=== PATIENT | female | born 1995 | race Caucasian/White ===

== ENCOUNTER 2017-03-13 08:55 | Emergency (ER) | payer OTHER ==
[2017-03-13 10:14] LABS: Basophils % (Auto) 0.4 % (0.0-1.8); Eosinophils % (Auto) 9.2 % (0.0-4.3); Hematocrit 36.3 % (30.3-42.9); Hemoglobin 12.5 gm/dl (10.1-14.3); Mean Corpuscular HGB Conc 35 % (30-34); Mean Corpuscular Hemoglobin 30 pg (28-32); Mean Corpuscular Volume 86 fl (79-97); Platelet Count 121 K/mm3 (140-440); Red Blood Count 4.24 M/mm3 (3.65-5.03); Red Cell Distribution Width 14.3 % (13.2-15.2); White Blood Count 8.3 K/mm3 (4.5-11.0)
[2017-03-13 10:33] LABS: Alanine Aminotransferase 6 units/L (7-56); Albumin 3.6 g/dL (3.9-5); Albumin/Globulin Ratio 1.1 %; Alkaline Phosphatase 70 units/L (35-129); Anion Gap 16 mmol/L; BUN/Creatinine Ratio 20; Blood Urea Nitrogen 6 mg/dL (7-17); Calcium 8.7 mg/dL (8.4-10.2); Carbon Dioxide 26 mmol/L (22-30); Chloride 99.3 mmol/L (98-107); Glucose 86 mg/dL (65-100); Potassium 3.8 mmol/L (3.6-5.0); Sodium 137 mmol/L (137-145)
[2017-03-13 10:34] LABS: Bilirubin,Direct < 0.2 mg/dL (0-0.2); Bilirubin,Indirect 0.1 mg/dL
[2017-03-13] MEDS ORDERED: TYLENOL PO ONE (10:40)
--- NOTE | 2017-03-13 11:05 | Emergency Department Report ---
HPI - General Chief Complaint: Abdominal Pain Time Seen by Provider: 03/13/17 09:39 - HPI HPI: This is a 21-year-old female presents to the emergency department with a complaint of a 3-4 day history of some upper abdominal discomfort that is associated with some nausea without vomiting. She denies any vaginal bleeding, discharge, dysuria. She says that she had a fever on Monday, 3 days ago and says that they checked the temperature by she is unsure what the result was. She has also been having a few days of some upper respiratory type symptoms including a dry cough. She tried some Tylenol for her discomfort without much relief. The patient says that she is as she found out incidentally back in November and says that she was told she was 6 weeks at that time. She has a past surgical history of a cholecystectomy. No recent travel or sick contacts at home. The patient later told me that she has in fact had some mild vaginal spotting over the past few days when she uses the bathroom and wipes herself. ED Past Medical Hx - Past Medical History Previous Medical History?: No - Surgical History Past Surgical History?: Yes Hx Cholecystectomy: Yes - Social History Smoking Status: Never Smoker Substance Use Type: None - Medications Home Medications: Home Medications Medication Instructions Recorded Confirmed Last Taken Type Vit-Fe Fumar-FA [ 1 tab PO QDAY #30 tablet 03/13/17 Unknown Rx Vitamin] ED Review of Systems ROS: Stated complaint: CHEST AND STOMACH PAIN, PREG Other details as noted in HPI Comment: All other systems reviewed and negative Constitutional: denies: chills, fever Eyes: denies: eye pain, eye discharge, vision change ENT: denies: ear pain, throat pain Respiratory: cough. denies: shortness of breath Cardiovascular: denies: palpitations, edema Gastrointestinal: abdominal pain, nausea. denies: vomiting Genitourinary: denies: urgency, dysuria, discharge Musculoskeletal: denies: back pain, arthralgia Skin: denies: rash, lesions Neurological: denies: headache, weakness, paresthesias Physical Exam - Physical Exam Vital Signs: Vital Signs 03/13/17 09:02 Temperature 98.5 F Pulse Rate 85 Respiratory 16 Rate Blood Pressure 118/64 O2 Sat by Pulse 98 Oximetry Physical Exam: GENERAL: The patient is well-developed well-nourished. HENT: Normocephalic. Atraumatic. Patient has moist mucous membranes. EYES: Extraocular motions are intact. Pupils equal reactive to light bilaterally. NECK: Supple. Trachea is midline. CHEST/LUNGS: Clear to auscultation. There is no respiratory distress noted. HEART/CARDIOVASCULAR: Regular. There is no tachycardia. There is no gallop rub or murmur. ABDOMEN: Abdomen is soft. There is mild tenderness palpation to the middle to upper abdomen but no guarding or rebound tenderness. Gravid uterus appears palpable just below the umbilicus. Patient has normal bowel sounds. SKIN: There is no rash. There is no edema. There is no diaphoresis. NEURO: The patient is awake, alert, and oriented. The patient is cooperative. The patient has no focal neurologic deficits. The patient has normal speech MUSCULOSKELETAL: There is no tenderness or deformity. There is no limitation range of motion. There is no evidence of acute injury. ED Course Vital Signs 03/13/17 09:02 Temperature 98.5 F Pulse Rate 85 Respiratory 16 Rate Blood Pressure 118/64 O2 Sat by Pulse 98 Oximetry ED Medical Decision Making - Lab Data Result diagrams: 03/13/17 09:59 03/13/17 09:59 - Radiology Data Radiology results: report reviewed OB ULTRASOUND GREATER THAN 14 WEEKS INDICATION: Abdominal pain. COMPARISON: None similar. TECHNIQUE: Transabdominal grayscale ultrasound with Doppler interrogation. Gestation: Felder Position: Cephalic Amniotic Fluid: WNL (less than 24 weeks, subjective) Placenta: Anterior Placental Grade: 0 Heart Rate: 143 BPM Cervical length: 5.2 cm (Normal > 3 cm) It is too early for a anatomical survey BPD: 3.95 cm = 18 w 0 d HC: 14.5 cm = 17 w 5 d AC: 11.8 cm = 17 w 4 d FL: 2.6 cm = 17 w 5 d HC/AC Ratio: 1.22 Cephalic Index: 81.5 Estimated Weight: 203 grams LMP: 11/12/2016 Clinical age = 17 w 2 d EDC: 08/19/2017 US Gest. Age = 17 w 5 d EDC: 08/16/2017 CONCLUSION: Single, viable intrauterine gestation with ultrasound estimated age of 17 weeks and 5 days and EDC of 08/16/2017, currently in vertex lie with details, as above. Thank you for the opportunity to participate in this patient's care. Transcribed By: ALIDA Dictated By: EDISON CALLES MD Electronically Authenticated By: EDISON CALLES MD Signed Date/Time: 03/13/17 1229 ULTRASOUND ABDOMEN COMPLETE INDICATION: Abdominal pain. COMPARISON: None similar at this institution. FINDINGS: Abdominal sonography demonstrates diffuse hepatic echogenic coarsening with grossly preserved contours. No definite focal suspicious lesions or biliary dilatation, to the extent assessed. Right hepatic lobe approximately 21 cm in midclavicular length. Gallbladder surgically absent. Common bile duct is 3 mm. Homogenous spleen, approximately 9.4 cm in length. No ascites. Imaged pancreas grossly within normal limits. Unremarkable IVC. Nonaneurysmal abdominal aorta. No hydronephrosis with right kidney approximately 11.3 x 4.6 x 5.7 cm with cortical thickness of 1.4 cm while the left kidney is 10.5 x 5.7 x 5.2 cm with cortical thickness of 1.6 cm. CONCLUSION: Fatty enlarged liver and cholecystectomy without acute abdominal sonographic abnormality, as described. Thank you for the opportunity to participate in this patient's care. Transcribed By: RS Dictated By: EDISON CALLES MD Electronically Authenticated By: EDISON CALLES MD Signed Date/Time: 03/13/17 1215 - Medical Decision Making 21-year-old female presents with a few days of some upper abdominal discomfort and some nausea without vomiting. She also knows that she is but is unsure how far along she is. Her labs appeared mostly unremarkable. There is no signs of any leukocytosis, likely abnormalities and she has normal belly labs including lipase, bilirubin and LFTs. Urinalysis confirms but does not show any urinary tract infection. Both a obstetric and regular abdominal ultrasound were done that showed a intrauterine at about 17 weeks but otherwise no acute process or infectious etiology in this female who has a previous cholecystectomy. Vital signs were stable throughout ED course including being afebrile. She will be started on vitamins. She will be given multiple referrals for MACHINE OPERATOR TRANSPLANTER for care. She has been encouraged to return to the emergency department with any worsening of her symptoms, increased bleeding, or any acute distress. Discharge instructions were provided while she was in the emergency department and all questions have been answered. - Differential Diagnosis , threatened miscarriage, fibroids, appendicitis Critical Care Time: No Critical care attestation.: If time is entered above; I have spent that time in minutes in the direct care of this critically ill patient, excluding procedure time. ED Disposition Clinical Impression: Threatened miscarriage Abdominal pain Qualifiers: Abdominal location: periumbilical Qualified Code(s): R10.33 - Periumbilical pain Qualifiers: Weeks of gestation: 17 weeks Qualified Code(s): Z3A.17 - 17 weeks gestation of Disposition: - TO HOME OR SELFCARE Is pt being admited?: No Condition: Stable Instructions: Threatened Miscarriage (ED), (ED), Abdominal Pain (ED) Additional Instructions: Please follow up with an MACHINE OPERATOR TRANSPLANTER in the next few days. Return to the emergency Department with any worsening of your symptoms or any acute distress. You can take Tylenol 500-650 mg every 6 hours as needed for discomfort. I have started you on vitamins. Otherwise do not take any medications that are not prescribed by a physician as they may not be safe for . Prescriptions: Vit-Fe Fumar-FA [ Vitamin] 1 tab PO QDAY #30 tablet Referrals: [facility] [Provider Group] - 3-5 Days [facility] [Provider Group] - 3-5 Days [facility] [Provider Group] - 3-5 Days [facility] [Primary Care Provider] - 3-5 Days Time of Disposition: 13:06
[2017-03-13 11:14] LABS: Bacteria,Urine 1+ /HPF (Negative); Mucus,Urine 2+ /HPF
[2017-03-13 11:19] LABS: Bilirubin,Urine NEG (Negative); Blood,Urine SM (Negative); Ketones,Urine NEG (Negative); Leukocyte Esterase,Urine MOD (Negative); Nitrite,Urine NEG (Negative); Protein,Urine <15 mg/dL mg/dL (Negative)
--- NOTE | 2017-03-13 12:21 | Ultrasound Report ---
ULTRASOUND ABDOMEN COMPLETE INDICATION: Abdominal pain. COMPARISON: None similar at this institution. FINDINGS: Abdominal sonography demonstrates diffuse hepatic echogenic coarsening with grossly preserved contours. No definite focal suspicious lesions or biliary dilatation, to the extent assessed. Right hepatic lobe approximately 21 cm in midclavicular length. Gallbladder surgically absent. Common bile duct is 3 mm. Homogenous spleen, approximately 9.4 cm in length. No ascites. Imaged pancreas grossly within normal limits. Unremarkable IVC. Nonaneurysmal abdominal aorta. No hydronephrosis with right kidney approximately 11.3 x 4.6 x 5.7 cm with cortical thickness of 1.4 cm while the left kidney is 10.5 x 5.7 x 5.2 cm with cortical thickness of 1.6 cm. CONCLUSION: Fatty enlarged liver and cholecystectomy without acute abdominal sonographic abnormality, as described. Thank you for the opportunity to participate in this patient's care.
--- NOTE | 2017-03-13 12:34 | Ultrasound Report ---
OB ULTRASOUND GREATER THAN 14 WEEKS INDICATION: Abdominal pain. COMPARISON: None similar. TECHNIQUE: Transabdominal grayscale ultrasound with Doppler interrogation. Gestation: Felder Position: Cephalic Amniotic Fluid: WNL (less than 24 weeks, subjective) Placenta: Anterior Placental Grade: 0 Heart Rate: 143 BPM Cervical length: 5.2 cm (Normal > 3 cm) It is too early for a anatomical survey BPD: 3.95 cm = 18 w 0 d HC: 14.5 cm = 17 w 5 d AC: 11.8 cm = 17 w 4 d FL: 2.6 cm = 17 w 5 d HC/AC Ratio: 1.22 Cephalic Index: 81.5 Estimated Weight: 203 grams LMP: 11/12/2016 Clinical age = 17 w 2 d EDC: 08/19/2017 US Gest. Age = 17 w 5 d EDC: 08/16/2017 CONCLUSION: Single, viable intrauterine gestation with ultrasound estimated age of 17 weeks and 5 days and EDC of 08/16/2017, currently in vertex lie with details, as above. Thank you for the opportunity to participate in this patient's care.
[2017-03-13 12:42] VITALS: BP 116/59
== END 2017-03-13 13:29 | disposition home or self-care (01) ==
LOC: ED 08:55
DX: O20.0 Threatened abortion (principal); Z3A.17 17 weeks gestation of pregnancy
CPT/HCPCS: 36415; 76700; 76801; 80048; 80074; 81001; 84703; 85025; 99284

== ENCOUNTER 2017-03-29 15:42 | Emergency (ER) | payer OTHER ==
[2017-03-29 15:54] VITALS: BP 130/68
[2017-03-29 16:28] LABS: Hematocrit 38.7 % (30.3-42.9); Mean Corpuscular Hemoglobin 29 pg (28-32); Mean Corpuscular Volume 87 fl (79-97); Red Blood Count 4.45 M/mm3 (3.65-5.03); White Blood Count 13.6 K/mm3 (4.5-11.0)
[2017-03-29 16:29] LABS: Basophils % (Auto) 0.3 % (0.0-1.8); Eosinophils % (Auto) 2.5 % (0.0-4.3); Mean Corpuscular HGB Conc 34 % (30-34); Platelet Count 120 K/mm3 (140-440); Red Cell Distribution Width 14.7 % (13.2-15.2)
[2017-03-29 16:35] LABS: Anion Gap 21 mmol/L; BUN/Creatinine Ratio 20; Blood Urea Nitrogen 6 mg/dL (7-17); Calcium 8.6 mg/dL (8.4-10.2); Carbon Dioxide 20 mmol/L (22-30); Chloride 99.1 mmol/L (98-107); Glucose 87 mg/dL (65-100); Potassium 3.5 mmol/L (3.6-5.0); Sodium 137 mmol/L (137-145)
[2017-03-29 19:36] LABS: Bacteria,Urine 1+ /HPF (Negative); Bilirubin,Urine NEG (Negative); Blood,Urine SM (Negative); Ketones,Urine 20 mg/dL (Negative); Leukocyte Esterase,Urine LG (Negative); Mucus,Urine 2+ /HPF; Nitrite,Urine NEG (Negative); Urobilinogen,Urine < 2.0 mg/dL (<2.0)
== END 2017-03-30 00:03 | disposition left against medical advice (07) ==
LOC: ED 15:42
DX: Z53.21 Procedure and treatment not carried out due to patient leaving prior to being seen by health care provider (principal)
CPT/HCPCS: 36415; 80048; 81001; 84702; 85025

== ENCOUNTER 2017-06-19 23:50 | Outpatient (CLI) | payer OTHER ==
[2017-06-20] MEDS ORDERED: LACTATED RINGERS 1,000 ML IV ONE ×2 (00:46→01:50)
[2017-06-20 01:56] LABS: Basophils % (Auto) 0.7 % (0.0-1.8); Eosinophils # (Auto) 0.2 K/mm3 (0.0-0.4); Eosinophils % (Auto) 3.6 % (0.0-4.3); Hematocrit 27.2 % (30.3-42.9); Hemoglobin 9.3 gm/dl (10.1-14.3); Lymphocytes # (Auto) 1.7 K/mm3 (1.2-5.4); Lymphocytes % (Auto) 29.5 % (13.4-35.0); Mean Corpuscular HGB Conc 34 % (30-34); Mean Corpuscular Hemoglobin 28 pg (28-32); Mean Corpuscular Volume 84 fl (79-97); Monocytes # (Auto) 0.4 K/mm3 (0.0-0.8); Monocytes % (Auto) 6.8 % (0.0-7.3); Red Blood Count 3.26 M/mm3 (3.65-5.03); Red Cell Distribution Width 13.6 % (13.2-15.2)
--- NOTE | 2017-06-20 01:57 | Ultrasound Report ---
FINAL REPORT EXAM: US OB > = 14 WEEKS FETUS HISTORY: No PNC. Complete US TECHNIQUE: Transabdominal imaging was obtained of the pelvis. FINDINGS: There is a single viable intrauterine with cephalic presentation corresponding to a gestational age of 31 weeks 3 days based on sonographic criteria. The heart is 154 BPM. The placenta is fundal in position and is grade 1. The JOSE is 5.5 cm which is decreased. There are no gross anomalies involving the stomach, kidneys, bladder, diaphragm, four-chamber heart, heart, and three-vessel umbilical cord. The neuro anatomy, spine and cord insertion cannot be evaluated. The estimated weight is 1813 grams. The cervix is closed measuring 2.5 cm in length. IMPRESSION: Single viable IUP, 31 weeks 3 days. Diminished JOSE of 5.5 cm.
[2017-06-20 02:02] LABS: Platelet Count 135 K/mm3 (140-440)
[2017-06-20 02:04] LABS: Hepatitis C Virus Antibody Non-Reactive (NonReactive)
[2017-06-20 02:49] LABS: Rubella IgG Antibody Immune (Immune)
[2017-06-20] MEDS ORDERED: PROCARDIA*For Tocolysis only PO ONE (02:51)
[2017-06-20 03:10] VITALS: BP 108/69
[2017-06-20 04:43] LABS: Bilirubin,Urine NEG (Negative); Blood,Urine NEG (Negative); Color,Urine Yellow (Yellow); Mucus,Urine FEW /HPF; Nitrite,Urine NEG (Negative); Protein,Urine <15 mg/dL mg/dL (Negative)
[2017-06-20 04:44] LABS: Amphetamine Screen,Urine PRESUMPTIVE NEGATIVE; Benzodiazepines Screen,Urine PRESUMPTIVE NEGATIVE; Cannabinoid Screen,Urine PRESUMPTIVE NEGATIVE; Cocaine Screen,Urine PRESUMPTIVE NEGATIVE; Methadone Screen,Urine PRESUMPTIVE NEGATIVE; Opiate Screen,Urine PRESUMPTIVE NEGATIVE
== END 2017-06-20 05:10 | disposition home or self-care (01) ==
LOC: TRG 23:50
PROVIDERS: ATTEND Obstetrics & Gynecology
DX: O62.9 Abnormality of forces of labor, unspecified (principal); O42.92 Full-term premature rupture of membranes, unspecified as to length of time between rupture and onset of labor; O26.893 Other specified pregnancy related conditions, third trimester; R10.9 Unspecified abdominal pain; R51 Headache; Z79.899 Other long term (current) drug therapy; Z3A.31 31 weeks gestation of pregnancy
CPT/HCPCS: 36415; 59025; 76805; 80307; 81001; 85025; 86592; 86706; 86762; 86803; 87806; 96360; 96361; J7120

== ENCOUNTER 2018-01-29 20:59 | Emergency (ER) | payer SELFPAY ==
[2018-01-29] MEDS ORDERED: ASPIRIN PO ONE (21:10)
[2018-01-29] MEDS ORDERED: NACL 0.9% 1000 ML 1,000 ML IV ONE (21:10)
[2018-01-29 21:39] LABS: Basophils % (Auto) 0.6 % (0.0-1.8); Eosinophils # (Auto) 0.1 K/mm3 (0.0-0.4); Eosinophils % (Auto) 0.7 % (0.0-4.3); Hematocrit 38.1 % (30.3-42.9); Hemoglobin 13.2 gm/dl (10.1-14.3); Lymphocytes # (Auto) 1.5 K/mm3 (1.2-5.4); Lymphocytes % (Auto) 19.5 % (13.4-35.0); Mean Corpuscular HGB Conc 35 % (30-34); Mean Corpuscular Hemoglobin 29 pg (28-32); Mean Corpuscular Volume 83 fl (79-97); Monocytes # (Auto) 0.4 K/mm3 (0.0-0.8); Monocytes % (Auto) 4.8 % (0.0-7.3); Platelet Count 141 K/mm3 (140-440); Red Blood Count 4.58 M/mm3 (3.65-5.03); Red Cell Distribution Width 14.4 % (13.2-15.2)
[2018-01-29 21:56] LABS: Alanine Aminotransferase 12 units/L (7-56); BUN/Creatinine Ratio 15; Blood Urea Nitrogen 6 mg/dL (7-17); Calcium 8.8 mg/dL (8.4-10.2); Hemolysis Index 14; Lipase 21 units/L (13-60)
[2018-01-29 23:24] LABS: Bacteria,Urine 1+ /HPF (Negative); Bilirubin,Urine NEG (Negative); Blood,Urine NEG (Negative); Color,Urine Yellow (Yellow); Mucus,Urine 3+ /HPF
[2018-01-30] MEDS ORDERED: NACL 0.9% 1000 ML 1,000 ML ONE (03:14)
[2018-01-30] MEDS ORDERED: ASPIRIN ONE (03:27)
[2018-01-30] MEDS ORDERED: PEPCID IV ONE (06:34)
[2018-01-30] MEDS ORDERED: NACL 0.9% 1000 ML 1,000 ML IV ONE (06:34)
[2018-01-30] MEDS ORDERED: ZOFRAN IV ONE (06:34)
[2018-01-30] MEDS ORDERED: ALUM-MAG HYDROX-SIMETH 200-200-20MG/5ML PO ONE (06:34)
[2018-01-30] MEDS ORDERED: K-DUR PO ONE (06:36)
--- NOTE | 2018-01-30 07:00 | Emergency Department Report ---
ED Abdominal Pain HPI - General Chief Complaint: Abdominal Pain Stated Complaint: ABD PAIN; H/A Time Seen by Provider: 01/30/18 06:18 Source: patient Mode of arrival: Ambulatory Limitations: No Limitations - History of Present Illness Initial Comments: 22-year-old female with a history of previous cholecystitis versus the hospital complaining of and abdominal pain. Patient is unsure LMP and has her first visit is scheduled for next week. She complains of intermittent left upper quadrant abdominal pain 1 year. Pain has been worse the last 2-3 days described as sharp, constant, rated 7/intensity, worse with palpation and movement. Positive nausea without vomiting, melena, hematochezia, diarrhea, dysuria, or hematuria. Patient had a cholecystectomy due to similar pain without improvement. She has never seen a GI specialist had an endoscopy. This is patient's 5 and she has 5 living children. Patient complains of mild headache and dizziness. No focal numbness or weakness reported. HYDRAULIC PRESS TENDER M.D.: Anita Euceda Severity scale (0 -10): 0 - Related Data Previous Rx's Medication Instructions Recorded Last Taken Type Vit-Fe Fumar-FA [ 1 tab PO QDAY #30 tablet 03/13/17 Unknown Rx Vitamin] Famotidine [Pepcid] 10 mg PO BID #20 tablet 01/30/18 Unknown Rx Mag Hydrox/Aluminum Hyd/Simeth 20 ml PO QID PRN #1 bottle 01/30/18 Unknown Rx [Maalox Advanced Suspension] Nitrofurantoin Monohyd/M-Cryst 100 mg PO BID #14 capsule 01/30/18 Unknown Rx [Macrobid 100 mg Capsule] Ondansetron [Zofran Odt] 4 mg PO Q8HR PRN #20 tab.rapdis 01/30/18 Unknown Rx Allergies Allergy/AdvReac Type Severity Reaction Status Date / Time No Known Allergies Allergy Verified 03/13/17 09:07 ED Review of Systems ROS: Stated complaint: ABD PAIN; H/A Other details as noted in HPI Comment: All other systems reviewed and negative ED Past Medical Hx - Past Medical History Previous Medical History?: Yes Hx Hypertension: No Hx Diabetes: No Hx Deep Vein Thrombosis: No Hx Renal Disease: No Hx Sickle Cell Disease: No Hx Seizures: No Hx Asthma: No Hx HIV: No - Surgical History Past Surgical History?: Yes Hx Cholecystectomy: Yes Additional Surgical History: cleft palate. ear tubes - Social History Smoking Status: Never Smoker Substance Use Type: None - Medications Home Medications: Home Medications Medication Instructions Recorded Confirmed Last Taken Type Vit-Fe Fumar-FA [ 1 tab PO QDAY #30 tablet 03/13/17 Unknown Rx Vitamin] Famotidine [Pepcid] 10 mg PO BID #20 tablet 01/30/18 Unknown Rx Mag Hydrox/Aluminum Hyd/Simeth 20 ml PO QID PRN #1 bottle 01/30/18 Unknown Rx [Maalox Advanced Suspension] Nitrofurantoin Monohyd/M-Cryst 100 mg PO BID #14 capsule 01/30/18 Unknown Rx [Macrobid 100 mg Capsule] Ondansetron [Zofran Odt] 4 mg PO Q8HR PRN #20 tab.rapdis 01/30/18 Unknown Rx ED Physical Exam - General Limitations: No Limitations - Other Other exam information: General: No limitations, patient is alert in no acute distress Head exam: Atraumatic, normocephalic Eyes exam: Normal appearance, nonicteric sclera ENT: Moist mucous membrane, normal oropharynx Neck exam: Normal inspection, full range of motion, no meningismus nontender Respiratory exam: Clear to auscultation bilateral, no wheezes, rales, crackles Cardiovascular: Normal rate and rhythm, normal heart sounds Abdomen: Soft, nondistended, epigastric and left upper quadrant tenderness, with normal bowel sounds, no rebound, or guarding Extremity: Full range of motion normal inspection no deformity Back: Normal Inspection, full range of motion, no tenderness Neurologic: Alert, oriented x3, cranial nerves intact, no motor or sensory deficit Psychiatric: normal affect, normal mood Skin: Warm, dry, intact ED Course Vital Signs 01/29/18 01/30/18 01/30/18 21:04 03:21 08:09 Temperature 98.6 F 98.7 F Pulse Rate 103 H 85 Respiratory 18 18 Rate Blood Pressure 126/73 Blood Pressure 108/57 [Right] O2 Sat by Pulse 99 98 97 Oximetry 01/30/18 01/30/18 01/30/18 08:10 08:11 08:14 Temperature 98.6 F Pulse Rate 95 H Respiratory Rate Blood Pressure 102/36 102/36 Blood Pressure [Right] O2 Sat by Pulse 99 97 Oximetry ED Medical Decision Making - Lab Data Result diagrams: 01/29/18 21:14 01/29/18 21:14 Lab Results 01/29/18 01/29/18 01/29/18 Range/Units 21:14 21:14 21:14 WBC 7.8 (4.5-11.0) K/mm3 RBC 4.58 (3.65-5.03) M/mm3 Hgb 13.2 (10.1-14.3) gm/dl Hct 38.1 (30.3-42.9) % MCV 83 (79-97) fl MCH 29 (28-32) pg MCHC 35 H (30-34) % RDW 14.4 (13.2-15.2) % Plt Count 141 (140-440) K/mm3 Lymph % (Auto) 19.5 (13.4-35.0) % [place] % (Auto) 4.8 (0.0-7.3) % Eos % (Auto) 0.7 (0.0-4.3) % Baso % (Auto) 0.6 (0.0-1.8) % Lymph # 1.5 (1.2-5.4) K/mm3 [place] # 0.4 (0.0-0.8) K/mm3 Eos # 0.1 (0.0-0.4) K/mm3 Baso # 0.0 (0.0-0.1) K/mm3 Seg Neutrophils % 74.4 H (40.0-70.0) % Seg Neutrophils # 5.8 (1.8-7.7) K/mm3 Sodium 135 L (137-145) mmol/L Potassium 3.3 L (3.6-5.0) mmol/L Chloride 99.0 (98-107) mmol/L Carbon Dioxide 21 L (22-30) mmol/L Anion Gap 18 mmol/L BUN 6 L (7-17) mg/dL Creatinine 0.4 L (0.7-1.2) mg/dL Estimated GFR > 60 ml/min BUN/Creatinine Ratio 15 % Glucose 99 (65-100) mg/dL Calcium 8.8 (8.4-10.2) mg/dL Total Bilirubin 0.60 (0.1-1.2) mg/dL AST 15 (5-40) units/L ALT 12 (7-56) units/L Alkaline Phosphatase 97 (35-129) units/L Troponin T < 0.010 (0.00-0.029) ng/mL Total Protein 7.7 (6.3-8.2) g/dL Albumin 4.0 (3.9-5) g/dL Albumin/Globulin Ratio 1.1 % Lipase 21 (13-60) units/L HCG, Quant 00558 H (0-4) mIU/mL Urine Color (Yellow) Urine Turbidity (Clear) Urine pH (5.0-7.0) Ur Specific [place] (1.003-1.030) Urine Protein (Negative) mg/dL Urine Glucose (UA) (Negative) mg/dL Urine Ketones (Negative) mg/dL Urine Blood (Negative) Urine Nitrite (Negative) Urine Bilirubin (Negative) Urine Urobilinogen (<2.0) mg/dL Ur Leukocyte Esterase (Negative) Urine WBC (Auto) (0.0-6.0) /HPF Urine RBC (Auto) (0.0-6.0) /HPF U Epithel Cells (Auto) (0-13.0) /HPF Urine Bacteria (Auto) (Negative) /HPF Urine Mucus /HPF 01/29/18 01/30/18 01/30/18 Range/Units 22:02 00:16 03:13 WBC (4.5-11.0) K/mm3 RBC (3.65-5.03) M/mm3 Hgb (10.1-14.3) gm/dl Hct (30.3-42.9) % MCV (79-97) fl MCH (28-32) pg MCHC (30-34) % RDW (13.2-15.2) % Plt Count (140-440) K/mm3 Lymph % (Auto) (13.4-35.0) % [place] % (Auto) (0.0-7.3) % Eos % (Auto) (0.0-4.3) % Baso % (Auto) (0.0-1.8) % Lymph # (1.2-5.4) K/mm3 [place] # (0.0-0.8) K/mm3 Eos # (0.0-0.4) K/mm3 Baso # (0.0-0.1) K/mm3 Seg Neutrophils % (40.0-70.0) % Seg Neutrophils # (1.8-7.7) K/mm3 Sodium (137-145) mmol/L Potassium (3.6-5.0) mmol/L Chloride (98-107) mmol/L Carbon Dioxide (22-30) mmol/L Anion Gap mmol/L BUN (7-17) mg/dL Creatinine (0.7-1.2) mg/dL Estimated GFR ml/min BUN/Creatinine Ratio % Glucose (65-100) mg/dL Calcium (8.4-10.2) mg/dL Total Bilirubin (0.1-1.2) mg/dL AST (5-40) units/L ALT (7-56) units/L Alkaline Phosphatase (35-129) units/L Troponin T < 0.010 < 0.010 (0.00-0.029) ng/mL Total Protein (6.3-8.2) g/dL Albumin (3.9-5) g/dL Albumin/Globulin Ratio % Lipase (13-60) units/L HCG, Quant (0-4) mIU/mL Urine Color Yellow (Yellow) Urine Turbidity Slightly-cloudy (Clear) Urine pH 5.0 (5.0-7.0) Ur Specific [place] 1.031 H (1.003-1.030) Urine Protein 30 mg/dl (Negative) mg/dL Urine Glucose (UA) Neg (Negative) mg/dL Urine Ketones 20 (Negative) mg/dL Urine Blood Neg (Negative) Urine Nitrite Neg (Negative) Urine Bilirubin Neg (Negative) Urine Urobilinogen 2.0 (<2.0) mg/dL Ur Leukocyte Esterase Sm (Negative) Urine WBC (Auto) 15.0 H (0.0-6.0) /HPF Urine RBC (Auto) 9.0 (0.0-6.0) /HPF U Epithel Cells (Auto) 5.0 (0-13.0) /HPF Urine Bacteria (Auto) 1+ (Negative) /HPF Urine Mucus 3+ /HPF - EKG Data -: EKG Interpreted by [facility] EKG shows normal: sinus rhythm, axis (qrs 68), QRS complexes (qrs 76), ST-T waves (no stemi/t inv) Rate: normal - EKG Data When compared to previous EKG there are: no significant change - Radiology Data Radiology results: report reviewed FINAL REPORT EXAM: US OB TRANSVAGINAL HISTORY: epigastric luq pain, COMPARISONS: None. FINDINGS: Transvaginal grayscale, color and M-mode first- trimester ultrasound Single living intrauterine with recorded cardiac activity of 157 beats per minute and crown-rump length of 12 millimeters, which corresponds to estimated gestational age of 7 weeks 5 days and delivery date of 09/13/2018. No perigestational hemorrhage. Normal appearing yolk sac measures 3 millimeters in diameter. Right ovarian corpus luteal cyst. The ovaries are otherwise unremarkable and measure 3.7 x 2.4 x 2.5 cm on the right and 2.1 x 1 x 1.4 cm on the left. No free fluid in the pelvis. IMPRESSION: Single living intrauterine with estimated gestational age of 7 weeks 5 days corresponding to delivery date of 09/13/2018. FINAL REPORT EXAM: US OB lt; = 14 WEEKS FETUS HISTORY: abd pain , COMPARISONS: Transvaginal ultrasound of the same date FINDINGS: Transabdominal grayscale ultrasound Anteverted uterus with gestational sac containing yolk sac and pole, both of which are better demonstrated on transvaginal ultrasound of the same date. No perigestational hemorrhage or free fluid in the pelvis identified. Ovaries are better visualized on transvaginal ultrasound of the same date. IMPRESSION: Intrauterine gestational sac containing a yolk sac and pole, both of which are better demonstrated on transvaginal ultrasound of the same date. Please see that exam for most accurate dating and description. FINAL REPORT EXAM: US ABDOMEN COMPLETE HISTORY: epigastric luq pain TECHNIQUE: Routine imaging was obtained of the upper abdomen. FINDINGS: The gallbladder is not identified. The common bile duct is normal caliber at 3 mm. The liver is normal in size and reveals increased echotexture compatible with fatty change. Both kidneys normal size contour and echotexture. The right kidney measures 10.3 cm x 5.4 cm x 6.2 cm. The right kidney measures 9.8 cm x 5.2 cm x 5.3 cm. There is no evidence of shadowing stones or hydronephrosis. The spleen is normal in size and echotexture measures 11.9 cm in length. The pancreas is normal size and echotexture. Free fluid is not seen. The abdominal aorta proximally measures 1.7 cm in diameter. The IVC is patent. IMPRESSION: Fatty liver. Cholecystectomy. No acute process identified. - Medical Decision Making Intermittent mid and left upper quadrant pain 1 year. Labs and and ultrasound unremarkable. Patient received Zofran, 1 L normal saline, Pepcid, and Maalox with improvement. By mouth potassium given for mild hypokalemia. Urine leukocytosis treated with Marcobid yo cover for UTI. OB ultrasound shows 7 week 5 day IUP. GI follow-up provided and HYDRAULIC PRESS TENDER follow-up encouraged. - Differential Diagnosis splenomegaly, renal colic, UTI, gastritis, ectopic Critical Care Time: No Critical care attestation.: If time is entered above; I have spent that time in minutes in the direct care of this critically ill patient, excluding procedure time. ED Disposition Clinical Impression: LUQ abdominal pain, 7 weeks gestation of , Vomiting, Dehydration, Hypokalemia, UTI (urinary tract infection) Disposition: - TO HOME OR SELFCARE Is pt being admited?: No Does the pt Need Aspirin: No Condition: Stable Instructions: (ED), Urinary Tract Infection in Women (ED), Abdominal Pain (ED) Additional Instructions: Take the medication as prescribed. Take Tylenol as needed for pain. Follow-up with a GI doctor and your HYDRAULIC PRESS TENDER doctor as scheduled. Take the copy of your ultrasound reports to your doctors for follow-up. Prescriptions: Famotidine [Pepcid] 10 mg PO BID #20 tablet Mag Hydrox/Aluminum Hyd/Simeth [Maalox Advanced Suspension] 20 ml PO QID PRN #1 bottle PRN Reason: Indigestion Nitrofurantoin Monohyd/M-Cryst [Macrobid 100 mg Capsule] 100 mg PO BID #14 capsule Ondansetron [Zofran Odt] 4 mg PO Q8HR PRN #20 tab.rapdis PRN Reason: Nausea And Vomiting Referrals: your, bi analyst [Other] - 3-5 Days JASMYN CARDENAS MD [Staff Physician] - 3-5 Days (GI specialist) Time of Disposition: 09:19
--- NOTE | 2018-01-30 07:50 | Ultrasound Report ---
FINAL REPORT EXAM: US ABDOMEN COMPLETE HISTORY: epigastric luq pain TECHNIQUE: Routine imaging was obtained of the upper abdomen. FINDINGS: The gallbladder is not identified. The common bile duct is normal caliber at 3 mm. The liver is normal in size and reveals increased echotexture compatible with fatty change. Both kidneys normal size contour and echotexture. The right kidney measures 10.3 cm x 5.4 cm x 6.2 cm. The right kidney measures 9.8 cm x 5.2 cm x 5.3 cm. There is no evidence of shadowing stones or hydronephrosis. The spleen is normal in size and echotexture measures 11.9 cm in length. The pancreas is normal size and echotexture. Free fluid is not seen. The abdominal aorta proximally measures 1.7 cm in diameter. The IVC is patent. IMPRESSION: Fatty liver. Cholecystectomy. No acute process identified.
[2018-01-30 08:14] VITALS: BP 102/36
--- NOTE | 2018-01-30 08:49 | Ultrasound Report ---
FINAL REPORT EXAM: US OB TRANSVAGINAL HISTORY: epigastric luq pain, COMPARISONS: None. FINDINGS: Transvaginal grayscale, color and M-mode first-trimester ultrasound Single living intrauterine with recorded cardiac activity of 157 beats per minute and crown-rump length of 12 millimeters, which corresponds to estimated gestational age of 7 weeks 5 days and delivery date of 09/13/2018. No perigestational hemorrhage. Normal appearing yolk sac measures 3 millimeters in diameter. Right ovarian corpus luteal cyst. The ovaries are otherwise unremarkable and measure 3.7 x 2.4 x 2.5 cm on the right and 2.1 x 1 x 1.4 cm on the left. No free fluid in the pelvis. IMPRESSION: Single living intrauterine with estimated gestational age of 7 weeks 5 days corresponding to delivery date of 09/13/2018.
--- NOTE | 2018-01-30 08:51 | Ultrasound Report ---
FINAL REPORT EXAM: US OB < = 14 WEEKS FETUS HISTORY: abd pain , COMPARISONS: Transvaginal ultrasound of the same date FINDINGS: Transabdominal grayscale ultrasound Anteverted uterus with gestational sac containing yolk sac and pole, both of which are better demonstrated on transvaginal ultrasound of the same date. No perigestational hemorrhage or free fluid in the pelvis identified. Ovaries are better visualized on transvaginal ultrasound of the same date. IMPRESSION: Intrauterine gestational sac containing a yolk sac and pole, both of which are better demonstrated on transvaginal ultrasound of the same date. Please see that exam for most accurate dating and description.
[2018-01-30] MEDS ORDERED: MACROBID PO ONE (09:18)
== END 2018-01-30 09:45 | disposition home or self-care (01) ==
LOC: ED 20:59
DX: O23.41 Unspecified infection of urinary tract in pregnancy, first trimester (principal); O21.9 Vomiting of pregnancy, unspecified; O26.891 Other specified pregnancy related conditions, first trimester; E86.0 Dehydration; E87.6 Hypokalemia; Z90.49 Acquired absence of other specified parts of digestive tract; Z3A.01 Less than 8 weeks gestation of pregnancy
CPT/HCPCS: 36415; 76700; 76801; 76817; 80053; 81001; 83690; 84484; 84702; 85025; 93005; 93010; 96361; 96374; 96375; 99284; J2405; J7030

== ENCOUNTER 2018-04-29 23:01 | Outpatient (CLI) | payer OTHER ==
[2018-04-29 23:25] VITALS: BP 110/61
[2018-04-30 00:50] LABS: Bilirubin,Urine NEG (Negative); Blood,Urine NEG (Negative); Color,Urine Yellow (Yellow); Protein,Urine <15 mg/dL mg/dL (Negative)
--- NOTE | 2018-04-30 03:33 | Event Note ---
Date: 04/30/18 22 year old female at 20 weeks, 3 days gestation presents to L&D triage complaining of left lower pelvic pain for 2 days and intermittent right lower pelvic pain. Patient denies contractions, VB, or LOF. She denies urinary symptoms. She reports visual disturbance, possibly "floaters" intermittently. She denies migraine. She is a patient of [facility] clinic and states she has an appointment there tomorrow. Urinalysis negative. Abdomen soft, nontender. Vital signs are stable. Patient's pain is consistent with round ligament pain; patient states pain resolves with side lying position. Discussed comfort measure for round ligament pain. Advised patient to follow up at [facility] clinic tomorrow as scheduled and also to see her eye doctor right away.
== END 2018-04-30 03:30 | disposition home or self-care (01) ==
LOC: TRG 23:01
PROVIDERS: ATTEND Obstetrics & Gynecology
DX: O26.892 Other specified pregnancy related conditions, second trimester (principal); O13.3 Gestational [pregnancy-induced] hypertension without significant proteinuria, third trimester; H53.8 Other visual disturbances; R51 Headache; R10.9 Unspecified abdominal pain; Z90.49 Acquired absence of other specified parts of digestive tract; Z3A.19 19 weeks gestation of pregnancy
CPT/HCPCS: 59025; 81001

== ENCOUNTER 2019-12-30 18:00 | Outpatient (CLI) | payer SELFPAY ==
[2019-12-30 19:15] LABS: Hematocrit 34.5 % (30.3-42.9); Hemoglobin 11.6 gm/dl (10.1-14.3); Mean Corpuscular HGB Conc 34 % (30-34); Mean Corpuscular Volume 82 fl (79-97); Red Blood Count 4.21 M/mm3 (3.65-5.03); Red Cell Distribution Width 14.8 % (13.2-15.2)
[2019-12-30 19:35] LABS: Platelet Count 82 K/mm3 (140-440)
[2019-12-30 19:43] LABS: Bacteria,Urine 2+ /HPF (Negative); Bilirubin,Urine NEG (Negative); Blood,Urine SM (Negative); Color,Urine Yellow (Yellow); Mucus,Urine 1+ /HPF; Urobilinogen,Urine < 2.0 mg/dL (<2.0)
[2019-12-30 19:48] LABS: Alanine Aminotransferase 7 units/L (7-56)
[2019-12-30 19:53] LABS: Creatinine,Urine 110.7 mg/dL (0.1-20.0)
[2019-12-30 20:06] LABS: Creatinine 24 Hour,Urine 0.6 (0.8-2.8)
[2019-12-30] MEDS ORDERED: LACTATED RINGERS 500 ML IV ONE (20:57)
[2019-12-30 21:04] VITALS: BP 122/60
== END 2019-12-30 21:33 | disposition home or self-care (01) ==
LOC: TRG 18:00 → APU 18:02 → TRG 21:33
PROVIDERS: ATTEND Obstetrics & Gynecology
DX: O13.3 Gestational [pregnancy-induced] hypertension without significant proteinuria, third trimester (principal); Z3A.36 36 weeks gestation of pregnancy
CPT/HCPCS: 36415; 59025; 81001; 82565; 82570; 83615; 84156; 84450; 84460; 84550; 85027

== ENCOUNTER 2020-06-10 19:24 | Emergency (ER) | payer OTHER ==
[2020-06-10 20:32] LABS: Basophils # (Auto) 0.1 K/mm3 (0.0-0.1); Basophils % (Auto) 0.9 % (0.0-1.8); Eosinophils # (Auto) 0.3 K/mm3 (0.0-0.4); Eosinophils % (Auto) 3.6 % (0.0-4.3); Hemoglobin 13.3 gm/dl (10.1-14.3); Lymphocytes # (Auto) 2.3 K/mm3 (1.2-5.4); Lymphocytes % (Auto) 26.1 % (13.4-35.0); Mean Corpuscular HGB Conc 34 % (30-34); Mean Corpuscular Volume 85 fl (79-97); Monocytes # (Auto) 0.5 K/mm3 (0.0-0.8); Monocytes % (Auto) 5.2 % (0.0-7.3); Platelet Count 139 K/mm3 (140-440); Red Cell Distribution Width 13.9 % (13.2-15.2)
[2020-06-10] MEDS ORDERED: ONDANSETRON 4 MG/2 ML INJ IV ONE (20:37)
[2020-06-10] MEDS ORDERED: BUTORPHANOL 2 MG/1 ML INJ IV ONE (20:37)
[2020-06-10 20:42] LABS: INR 0.95 (0.87-1.13); Partial Thromboplastin Time 26.8 Sec. (24.2-36.6)
[2020-06-10 20:53] LABS: Alanine Aminotransferase 13 units/L (7-56); Albumin 4.1 g/dL (3.9-5); Blood Urea Nitrogen 8 mg/dL (7-17); Calcium 9.1 mg/dL (8.4-10.2); Hemolysis Index 6
[2020-06-10 20:55] LABS: BUN/Creatinine Ratio 13
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
[2020-06-11] MEDS ORDERED: SODIUM CHLORIDE 0.9% 1000 ML 1,000 ML IV ONE (00:08)
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
[2020-06-11 02:14] VITALS: BP 132/80
== END 2020-06-11 02:14 | disposition home or self-care (01) ==
LOC: ED 19:24
DX: O26.891 Other specified pregnancy related conditions, first trimester (principal); S16.1XXA Strain of muscle, fascia and tendon at neck level, initial encounter; R07.89 Other chest pain; R10.9 Unspecified abdominal pain; M54.6 Pain in thoracic spine; R51.9 Headache, unspecified; Z3A.00 Weeks of gestation of pregnancy not specified; V49.49XA Driver injured in collision with other motor vehicles in traffic accident, initial encounter; W22.10XA Striking against or struck by unspecified automobile airbag, initial encounter; Y93.89 Activity, other specified; Y92.410 Unspecified street and highway as the place of occurrence of the external cause; Y99.8 Other external cause status
CPT/HCPCS: 36415; 70450; 71260; 72125; 72128; 76705; 76801; 80053; 83690; 84702; 85025; 85610; 85730; 96361; 96374; 96375; 99284; J0595; J2405; J7030; Q9967